=== PATIENT | male | born 1945 | race Caucasian/White ===

== ENCOUNTER → 2017-05-12 | Day surgery (SDC) | payer MEDICARE, OTHER ==
[~2017-05-12] MED LIST: ACETAMINOPHEN PO; ASPIRIN81 M2 PO; MULTIPLE VITAM1 EAC1 PO; PRAVASTATIN SOD40 MG PO; VOLTAREN75 MG PO
--- NOTE | ~2017-05-12 | OR ---
Unit #: [id number] #: [id number] Patient: CHARLI MYERS JR [id number] [address] [place], [place] [address] [id number] O MR#: [id number] NAME: CHARLI MYERS JR ROOM: Date of Procedure: 05/12/2017 Admission Date: 05/12/2017 Surgeon: Win Munguia M.D. : 1945 Attending Physician: Win Munguia M.D. Primary Care Physician: Nate Olmos M.D. OPERATIVE REPORT PREOPERATIVE DIAGNOSIS Screening colonoscopy. POSTOPERATIVE DIAGNOSIS Screening colonoscopy. PROCEDURE PERFORMED Colonoscopy to cecum. ANESTHESIA Monitored anesthesia care. FINDINGS The patient was found to have a normal colonoscopy except for mild internal hemorrhoids. SPECIMENS None. COMPLICATIONS None apparent. CONDITION The patient tolerated the procedure well. INDICATIONS FOR PROCEDURE The patient is a 70-year-old white male, who presents at this time for screening colonoscopy. It has been 10 years since his last endoscopy. DESCRIPTION OF PROCEDURE After obtaining informed consent, the patient was brought to the endoscopy suite and after adequate monitored anesthesia care, had the colonoscope placed through the anus and slowly advanced to the level of the cecum without difficulty with the lumen always in view. The cecum was normal as was the ileocecal valve. The ascending colon was normal as was the hepatic flexure, transverse colon, splenic flexure, and descending colon. The sigmoid colon was normal with no diverticula. The rectosigmoid and rectum were all within normal limits. On retroflexing in the rectum to the anorectal junction, the patient was found to have some mild internal hemorrhoids. The scope was removed without difficulty. On digital examination, there was good sphincter tone, no masses palpable. The patient went from the endoscopy suite to the recovery area in stable Unit #: [id number] #: [id number] Patient: CHARLI MYERS JR condition. RECOMMENDATIONS High-fiber diet, lots of liquids, tucks or wipes p.r.n. Follow up p.r.n. Dictated by... Chantal Luciano/arcelia TD: 05/12/2017 14:28 JOB #: [id number] CC: [facility] Nate Olmos M.D. OPERATIVE REPORT Page 1 of 1 X Win Munguia MD PROCEDURE OPERATIVE NOTE
== END | disposition home or self-care (01) ==
LOC: COPS 05:37
PROVIDERS: Surgery
PROC: 0DJD8ZZ Inspection of Lower Intestinal Tract, Via Natural or Artificial Opening Endoscopic (ICD-10-PCS; principal; 2017-05-12 07:00)
DX: Z12.31 Encounter for screening mammogram for malignant neoplasm of breast (principal); K64.8 Other hemorrhoids; E78.00 Pure hypercholesterolemia, unspecified; M19.90 Unspecified osteoarthritis, unspecified site; L72.3 Sebaceous cyst; Z79.899 Other long term (current) drug therapy; Z79.82 Long term (current) use of aspirin; Z79.1 Long term (current) use of non-steroidal anti-inflammatories (NSAID); Z86.79 Personal history of other diseases of the circulatory system; Z96.641 Presence of right artificial hip joint; Z80.9 Family history of malignant neoplasm, unspecified; Z83.3 Family history of diabetes mellitus; Z82.61 Family history of arthritis; Z82.5 Family history of asthma and other chronic lower respiratory diseases; Z81.1 Family history of alcohol abuse and dependence